=== PATIENT | male | born 1975 | race African-American/Black ===

== ENCOUNTER 2016-07-01 09:22 | Emergency (ER) | payer MEDICAID ==
[~2016-07-01] VITALS: Ht 165.1 cm; Wt 73.0 kg
[2016-07-01 09:33] VITALS: BP 140/81
[2016-07-01] MEDS ORDERED: LIDOCAINE HCL 1% 20ML VIAL (Pyxis) INJ INFIL ONE (10:00)
[2016-07-01] MEDS ORDERED: AZITHROMYCIN 500 MG TABLET PO ONE (10:00)
[2016-07-01] MEDS ORDERED: CEFTRIAXONE SODIUM 250 MG/VIAL IM ONE (10:00)
[2016-07-03 04:49] LABS: CHLAMYDIA TRACHOMATIS NAA Positive (Negative); NEISSERIA GONORRHOEAE NAA Negative (Negative)
== END 2016-07-01 11:54 | disposition home or self-care (01) ==
LOC: ER 11:26
DX: A74.9 Chlamydial infection, unspecified (principal)
CPT/HCPCS: 87491; 87591; 96372; 99284; J0696; J3490; Z7610; 99283